=== PATIENT | female | born 1965 | race Caucasian/White ===

== ENCOUNTER 2024-03-13 10:36 | Emergency (ER) | payer OTHER, SELFPAY ==
[2024-03-13 11:23] VITALS: BP 129/80; PULSE 74; RESP 16; TEMP 36.6; O2SAT 100; BMI 35.1
--- NOTE | 2024-03-13 11:25 | ED.GENADULT ---
HPI - General Adult General Chief complaint: Burn/Smoke Inhalation Stated complaint: Ross bottom of feet Time Seen by Provider: 03/13/24 11:39 Source: patient, RN notes reviewed and old records reviewed Mode of arrival: ambulatory Limitations: no limitations History of Present Illness ED Provider: Angel Jett HPI narrative: 58-year-old female presents for evaluation ross to both feet. Patient reports that she was running barefoot on the pavement yesterday after her dog that escaped. She reports running for about 5 minutes on the hot pavement and then had to walk home. She reports 6/10 pain to the bottom of feet She reports her pain is improved compared to yesterday. She has some blistering. She went to urgent care this morning and was referred to the ER Denies any numbness, tingling Related Data Allergies Allergy/AdvReac Type Severity Reaction Status Date / Time Sulfa (Sulfonamide Allergy Rash Verified 03/13/24 11:25 Antibiotics) Review of Systems Integumentary/Breasts: Skin/Breast: Reports erythema Comments: burn to both feet PMFSH Social History Social History Advance Directives: No Advance Directives Information Provided: No Physical Exam ED Vital Signs: Vital Signs - 24 hr 03/13/24 11:23 03/13/24 11:38 Temperature 97.9 F 97.9 F Pulse Rate 74 74 Respiratory Rate 16 16 Blood Pressure 129/80 129/80 Pulse Oximetry 100 100 Oxygen Delivery Method Room Air Room Air BMI result Body Mass Index 35.1 Const General: healthy appearing, comfortable, no acute distress, alert and awake Nutritional Appearance: well nourished Orientation/consciousness: patient oriented x3 HENMT Head: Yes normocephalic and Yes atraumatic Eyes Eyelids: Yes eyelids normal Conjunctivae: conjunctivae normal Sclerae: sclerae normal Corneas: corneas normal Pupils: Equal, round and reactive pupils present EOM: EOMs intact bilaterally Neck Neck: Yes full ROM Resp Effort & Inspection: normal respiratory effort, able to speak in complete sentences and not labored Skin Other: Patient has partial-thickness burn to the ball of both feet. Approximately 5 x 5 cm area to the plantar surface of each foot. There is some blistering. No significant erythema or drainage. No edema to the foot General skin exam: elasticity normal Neuro General: patient oriented x3 Cranial nerves: Yes Equal, round and reactive pupils present and Yes Bilaterally intact EOM present Cognition (Neuro): normal cognition Extrem Other: Moving all extremities well without any obvious deformities Course Course Course Narrative: RME- 58 year old female presents for evaluation of ross to both feet. She reports pain started yesterday while standing barefoot on the pavement. Medical Decision Making Medical Decision Making MDM Narrative: Patient appears to have a superficial, partial-thickness burn to the plantar surface of each foot. There is no evidence of 2nd or third-degree burn. There is no numbness, tingling food plan for conservative management. Differential Diagnosis Differential Diagnoses: The differential diagnosis associated with the presentation includes First-degree burn Second-degree burn Superficial burn Partial-thickness burn Discharge Plan Discharge Clinical Impression: Burn Patient Disposition: Home, Self-Care Instructions: Superficial Burn (ED) Additional Instructions: You may apply topical antibiotics such as bacitracin or Neosporin once daily for the next 5 days Keep the area clean and dry Do not pop any blisters or peeling he did skin Follow-up with your primary doctor Interventions: ED Discharge Assessment Last Done: 03/13/24 11:38 Discharge Date/Time: 03/13/24 11:40 Print Language: [place]
[2024-03-13 11:38] VITALS: BP 129/80; PULSE 74; RESP 16; TEMP 36.6; O2SAT 100
== END 2024-03-13 11:40 | disposition home or self-care (01) ==
LOC: HO.ED 11:40
PROVIDERS: Emergency Provider Student in an Organized Health Care Education/Training Program
DX: T25.222A Burn of second degree of left foot, initial encounter (principal); T25.221A Burn of second degree of right foot, initial encounter; X19.XXXA Contact with other heat and hot substances, initial encounter; Y93.02 Activity, running; Y92.410 Unspecified street and highway as the place of occurrence of the external cause; Y99.9 Unspecified external cause status
CPT/HCPCS: 99282